=== PATIENT | female | born 1950 | race Two or more races ===

== ENCOUNTER 2022-02-20 23:02 | Emergency (ER) | payer MEDICARE, OTHER ==
[~2022-02-20] VITALS: Ht 165.1 cm; Wt 69.9 kg
--- NOTE | 2022-02-20 23:22 | NUR ---
TO ER BED 10. BIBDAUGHTER C/O R CHIN AND R HAND PAIN AND DISCOLORATION S/P FALL. DENIES KO. NO DEFORMITY NOTED TO R HAND. CONNECTED TO MONITOR. AWAITING MD SIERRA
--- NOTE | 2022-02-21 00:24 | NUR ---
XRAY AT BEDSIDE
--- NOTE | 2022-02-21 01:50 | NUR ---
CALLED [facility] FOR IMAGING READ
--- NOTE | 2022-02-21 01:54 | NUR ---
Patient does not wish to proceed with medical care recommended by Dr. Wong. Patient given information related to possible complications, up to and including , which could occur as a result of leaving the hospital at this time. Patient verbalizes understanding of risks involved due to leaving against medical advice. Patient has signed AMA form.
[2022-02-21 01:55] VITALS: BP 146/80
== END 2022-02-21 01:55 | disposition left against medical advice (07) ==
LOC: ER 23:06
DX: M25.531 Pain in right wrist (principal); I10 Essential (primary) hypertension; J45.909 Unspecified asthma, uncomplicated
CPT/HCPCS: 73110; 73130-TC